=== PATIENT | female | born 1980 | race Asian ===

== ENCOUNTER 2019-06-18 22:29 | Inpatient (IN) | payer OTHER ==
[~2019-06-18] VITALS: Ht 157.5 cm; Wt 66.0 kg
[2019-06-19 00:55] LABS: BASOPHILS % 0.4 % (0.0-2.0); HEMATOCRIT. 43.2 % (36.0-48.0); HEMOGLOBIN. 13.9 g/dL (12.0-16.0); LYMPHOCYTES % 35.8 % (20.0-50.0); MEAN CORPUSCULAR HEMOGLOBIN 26.5 pg (28.0-32.0); MEAN CORPUSCULAR VOLUME 82.1 fL (81.0-99.0); MEAN PLATELET VOLUME 7.5 fl (7.4-10.4); MONOCYTES % 6.4 % (2.0-8.0); NEUTROPHILS % 55.4 % (40.0-76.0); PLATELET 279 x1000/uL (130-400); RED BLOOD CELL COUNT 5.26 mill/uL (4.2-5.4); RED CELL DISTRIBUTION WIDTH 15.4 % (11.6-14.6)
[2019-06-19] MEDS ORDERED: VISCOUS LIDOCAINE 2% 15 ML UDC PO ONE (01:00)
[2019-06-19] MEDS ORDERED: MAGNESIUM/ALUMINUM HYDROXIDE/SIMETHICONE 30ML UDC PO ONE (01:00)
[2019-06-19] MEDS ORDERED: ASPIRIN 81MG TABLET PO ONE (01:30)
[2019-06-19 02:04] LABS: CHLORIDE 105 mEq/L (98-107)
[2019-06-19 02:30] VITALS: BP 121/85
[2019-06-19] MEDS ORDERED: GUAIFENESIN 200MG/10ML SUGAR FREE UDC PO PRN (02:45)
[2019-06-19] MEDS ORDERED: CLONIDINE 0.1MG TABLET PO PRN (02:45)
[2019-06-19] MEDS ORDERED: ACETAMINOPHEN 325MG TABLET PO PRN (02:45)
[2019-06-19] MEDS ORDERED: MORPHINE SULFATE 2 MG/ML CPJ (NOT FOR IM USE) IV PRN (02:45)
[2019-06-19] MEDS ORDERED: DOCUSATE SODIUM 100MG CAPSULE PO PRN (02:45)
[2019-06-19] MEDS ORDERED: HYDROCODONE/ACETAMINOPHEN 5/325MG TABLET PO PRN (02:45)
[2019-06-19 04:00] VITALS: BP 110/72
[2019-06-19 08:00] VITALS: BP 124/86
[2019-06-19 08:11] LABS: CREATINE KINASE MB FRACTION 1.2 ng/mL (0.5-3.6)
[2019-06-19] MEDS: ENOXAPARIN 40MG/0.4ML SYR SUBCUT SCH (09:00)
[2019-06-19] MEDS: LISINOPRIL 10MG TABLET PO SCH (09:00)
[2019-06-19] MEDS: ASPIRIN 81MG EC TABLET PO SCH (09:15)
[2019-06-19 12:00] VITALS: BP 125/87
[2019-06-19 17:07] LABS: CREATINE KINASE 135 IU/L (26-192)
[2019-06-19 17:09] LABS: CREATINE KINASE MB FRACTION < 1.0 ng/mL (0.5-3.6)
[2019-06-19 17:25] VITALS: BP 130/79
[2019-06-19 20:00] VITALS: BP 110/71
[2019-06-20] VITALS (7 sets, daily range): BP systolic 109–129; BP diastolic 65–85
[2019-06-20 07:06] LABS: BASOPHILS % 0.3 % (0.0-2.0); HEMATOCRIT. 41.4 % (36.0-48.0); HEMOGLOBIN. 13.5 g/dL (12.0-16.0); LYMPHOCYTES % 29.2 % (20.0-50.0); MEAN CORPUSCULAR HEMOGLOBIN 26.7 pg (28.0-32.0); MEAN CORPUSCULAR VOLUME 81.9 fL (81.0-99.0); MONOCYTES % 4.6 % (2.0-8.0); NEUTROPHILS % 63.9 % (40.0-76.0); PLATELET 287 x1000/uL (130-400); RED BLOOD CELL COUNT 5.06 mill/uL (4.2-5.4); RED CELL DISTRIBUTION WIDTH 15.6 % (11.6-14.6)
[2019-06-20 07:48] LABS: CHLORIDE 107 mEq/L (98-107)
[2019-06-20 07:56] LABS: LDL CHOLESTEROL 84 mg/dL (5-100)
[2019-06-20 07:59] LABS: HDL CHOLESTEROL 36 mg/dL (40-59); T4 FREE 0.99 ng/dL (0.76-1.46)
[2019-06-20] MEDS: LISINOPRIL 10MG TABLET PO SCH ×2 (09:00→09:08)
[2019-06-20] MEDS: ENOXAPARIN 40MG/0.4ML SYR SUBCUT SCH ×2 (09:00→09:08)
[2019-06-20] MEDS: ASPIRIN 81MG EC TABLET PO SCH (09:08)
[2019-06-20] MEDS ORDERED: REGADENOSON 0.4 MG/5 ML IV SCH (09:15)
[2019-06-20] MEDS ORDERED: REGADENOSON 0.4 MG/5 ML IV ONE (13:32)
== END 2019-06-20 17:16 | disposition home or self-care (01) | DRG 310 ==
LOC: ER 23:08 → 7WST 06-19 01:29 → EDBEDREQ 06-19 01:33 → ENRESERV 06-19 01:40
PROVIDERS: ADMIT Hospitalist; ATTEND Hospitalist
DX: I49.1 Atrial premature depolarization (principal); R07.9 Chest pain, unspecified; E87.6 Hypokalemia; I10 Essential (primary) hypertension; R73.03 Prediabetes; R73.9 Hyperglycemia, unspecified; Z87.891 Personal history of nicotine dependence
CPT/HCPCS: 36415; 71045; 78452; 78582; 80061; 82550; 82553; 82962; 83036; 83735; 83880; 84439; 84443; 84484; 85379; 93005; 93017; 93306; 93970; 99285; A9500; A9558; J1650; J2785